=== PATIENT | female | born 2000 | race Two or more races ===

== ENCOUNTER 2021-09-15 22:08 | Emergency (ER) | payer OTHER ==
[~2021-09-15] VITALS: Ht 157.5 cm; Wt 52.2 kg
[~2021-09-15 22:08] MED LIST: INTAL; SINGULAIR; [UNRECOGNIZED DRUG - OTHER]
[2021-09-16] MEDS ORDERED: PEPCID AC20 MG PO (04:55)
[2021-09-16] MEDS ORDERED: DUI500 PO (04:55)
[2021-09-16] MEDS ORDERED: ONDANSETRON HCL4 MG PO (04:55)
[2021-09-16] MEDS ORDERED: PRENA1 TRUE CO1 EACH PO (04:55)
[2021-09-16] MEDS ORDERED: ACETAMINOPHEN650 M2 PO (04:55)
== END 2021-09-16 05:04 | disposition home or self-care (01) ==
LOC: EMR PED 22:08 → ER 22:08
DX: Z32.01 Encounter for pregnancy test, result positive (principal); O26.891 Other specified pregnancy related conditions, first trimester; O23.40 Unspecified infection of urinary tract in pregnancy, unspecified trimester; G56.00 Carpal tunnel syndrome, unspecified upper limb; Z03.818 Encounter for observation for suspected exposure to other biological agents ruled out; Z3A.00 Weeks of gestation of pregnancy not specified

== ENCOUNTER → 2023-04-15 | Emergency (ER) | payer OTHER ==
[~2023-04-15] MED LIST changes: +ACETAMINOPHEN650 M2 PO; +DUI500 PO; +ONDANSETRON HCL4 MG PO; +PEPCID AC20 MG PO; +PRENA1 TRUE CO1 EACH PO
== END | disposition left against medical advice (07) ==
LOC: ER 13:37
DX: Z53.21 Procedure and treatment not carried out due to patient leaving prior to being seen by health care provider (principal)